=== PATIENT | female | born 1930 | race Caucasian/White ===

== ENCOUNTER 2018-06-07 12:12 | Outpatient (CLI) | payer BC ==
[2018-06-07 13:29] LABS: #Eosinphils 0.1 thou/uL (0.0-0.7); #Lymphocytes 1.2 thou/uL (1.20-3.40); #Monocytes 0.6 thou/uL (0.11-0.59); #Neutrophils 4.7 thou/uL (1.40-6.50); %Basophils 0.7 % (0.0-1.0); %Eosinophils 1.1 % (0.0-10.0); %Lymphocytes 18.5 % (21.0-51.0); %Monocytes 9.1 % (0.0-10.0); %Neutrophils 70.6 % (42.0-75.0); Hemoglobin 13.7 g/dL (12.0-16.0); Mean Corpuscular Hemoglobin 32.8 pg (27.0-31.0); Mean Corpuscular Volume 96.4 fL (78.0-98.0); Mean Platelet Volume 8.9 fL (7.4-10.4); Platelet Count 207 thou/uL (130-400); RBC Distribution Width 11.7 % (11.5-14.5); Red Blood Cell (RBC) Count 4.18 mill/uL (4.20-5.40); White Blood Cell (WBC) Count 6.7 thou/uL (4.8-10.8)
[2018-06-07 13:34] LABS: INR-International Normal Ratio 1.2; PTT 37.9 SEC (22.9-36.1); Prothrombin Time 15.5 SEC (12.0-14.7)
[2018-06-07 13:51] LABS: ALT (SGPT) 11 U/L (8-55); AST (SGOT) 24 U/L (5-34); Albumin 4.4 g/dL (3.4-4.8); Alkaline Phosphatase 101 U/L (40-150); Anion Gap 12 mmol/L (10-20); BUN (Urea Nitrogen) 17 mg/dL (9.8-20.1); Bilirubin, Total 0.8 mg/dL (0.2-1.2); Calc. Creatinine Clearance 0 mL/min (70-130); Calcium 9.9 mg/dL (7.8-10.44); Carbon Dioxide 27 mmol/L (23-31); Chloride 105 mmol/L (98-107); Estimated GFR-MDRD 45; Globulin 3.3 g/dL (2.4-3.5); Glucose 100 mg/dL (83-110); Potassium 4.2 mmol/L (3.5-5.1); Protein, Total 7.7 g/dL (6.0-8.3); Sodium 140 mmol/L (136-145)
== END 2018-06-07 12:13 | disposition home or self-care (01) ==
LOC: LABBT 12:12
PROVIDERS: ATTEND Internal Medicine Cardiovascular Disease
DX: Z01.812 Encounter for preprocedural laboratory examination (principal); I50.22 Chronic systolic (congestive) heart failure
CPT/HCPCS: 80053; 85025; 85610; 85730

== ENCOUNTER 2018-06-10 05:40 | Day surgery (SDC) | payer BC ==
[2018-06-07 12:42] VITALS: BMI 20.3
[2018-06-10] MEDS ORDERED: Fentanyl 100 MCG/2 ML VIAL ONE ×2 (07:37→08:56)
[2018-06-10] MEDS ORDERED: Acetaminophen/Codeine 30-300mg Tablet ONE (08:41)
[2018-06-10] MEDS ORDERED: Iopamidol 370 76% 100 ML VIAL ONE (12:51)
--- NOTE | 2018-06-10 13:31 | PRG ---
DATE OF SERVICE: 06/10/2018 Ms. Pack underwent cardiac catheterization today. She has severe 3-vessel coronary artery disease, this is outlined in the chart. I had a long discussion with the patient and also Dr. Tano Tolentino, saw the patient. There is nothing that can be done percutaneously to assist her to discuss open-heart surgery, the patient declines that. She understands she is having very hard time with the rehabilitation process. For now, we will continue medication. The medicine will be the same except for we will increase the metoprolol to 25 mg a day from 12.5, to resume the Eliquis in 2 days. The other medicines including atorvastatin and amlodipine will be resumed, as well as lisinopril. The long-term prognosis is poor, but she is thought to be high risk for not successfully rehabilitating after open heart surgery and she declines surgery. Long-term prognosis is likely poor, but it would also be very difficult for her to undergo surgery and she declines that. Job ID: [id number]
--- NOTE | 2018-06-10 15:44 | CON ---
DATE OF CONSULTATION: 06/10/2018 HISTORY OF PRESENT ILLNESS: Ms. Pack is an 88-year-old woman, who has been followed chronically by Dr. Carpio for depressed left ventricular ejection fraction. Her most recent echo revealed an ejection fraction in the 20% range. She was brought in for cardiac catheterization for ischemic evaluation. She was found to have severe three-vessel disease at cardiac catheterization ventriculogram revealed ejection fraction in the 20% range. I have been asked to see her to discuss coronary artery bypass grafting options. PAST MEDICAL HISTORY: 1. Hypertension. 2. Congestive heart failure. 3. Severely depressed left ventricular ejection fraction. 4. Dyslipidemia. 5. Atrial fibrillation. PAST SURGICAL HISTORY: Hip surgery. CURRENT MEDICATIONS: 1. Toprol-XL 12.5 mg daily. 2. Lisinopril 5 mg daily. 3. Lipitor 20 mg at bedtime. 4. Eliquis 5 mg b.i.d. 5. Norvasc 2.5 mg daily. ALLERGIES: PENICILLIN. SOCIAL HISTORY: She lives with family. She does not use alcohol or tobacco. She is a as of November. PHYSICAL EXAMINATION: VITAL SIGNS: Her temperature is 98.8, pulse is 70 and regular, and blood pressure is 150/72. HEENT: Sclerae nonicteric. Pupils are equal and round bilaterally. NECK: Supple without bruit. CHEST: Clear bilaterally. HEART: Rhythm is regular. ABDOMEN: Soft and nontender. EXTREMITIES: No edema. VASCULAR: Shows palpable carotid, radial, and femoral pulses bilaterally. PSYCHIATRIC: The patient is awake, alert, and oriented to person, place, and time. ASSESSMENT AND PLAN: This is a pleasant 88-year-old woman, who has severe three-vessel disease and depressed left ventricular ejection fraction approximately 20% surgical standpoint, she has good coronary anatomy for bypass surgery. From a recovery standpoint, I am a little more concerned with her ability to have a good functional recovery. She is severely limited in her mobility at home due to her hip pain. She does not really do much as far as walking or other activity outside of the house. I have described surgical intervention in detail including the conduct of the operation, postoperative hospital stay, and potential need for rehab or usp recovery. She is not currently interested in surgical intervention and is going to "take her chances" with medical management. Job ID: [id number]
== END 2018-06-10 13:25 | disposition home or self-care (01) ==
LOC: CCL 05:40
PROVIDERS: ATTEND Internal Medicine Cardiovascular Disease
PROC: B2111ZZ Fluoroscopy of Multiple Coronary Arteries using Low Osmolar Contrast (ICD-10-PCS; principal; 2018-06-10)
PROC: B2151ZZ Fluoroscopy of Left Heart using Low Osmolar Contrast (ICD-10-PCS; principal; 2018-06-10)
DX: I25.10 Atherosclerotic heart disease of native coronary artery without angina pectoris (principal); I11.0 Hypertensive heart disease with heart failure; I50.22 Chronic systolic (congestive) heart failure; E78.00 Pure hypercholesterolemia, unspecified; I48.91 Unspecified atrial fibrillation; Z79.01 Long term (current) use of anticoagulants; Z79.899 Other long term (current) drug therapy; Z88.0 Allergy status to penicillin
CPT/HCPCS: 76942; 93458; 96374; 99152; 99153; C1769; J1644; J3010